=== PATIENT | male | born 1950 | race Caucasian/White ===

== ENCOUNTER → 2020-11-29 | Outpatient (CLI) | payer MEDICARE, OTHER ==
[~2020-11-29] MED LIST: ESOM20CA PO; MULT-658 PO; TAMS-11 PO
== END | disposition home or self-care (01) ==
LOC: STAR 09:54
PROVIDERS: ATTEND Urology
DX: Z01.812 Encounter for preprocedural laboratory examination (principal); Z20.822 Contact with and (suspected) exposure to COVID-19; N40.1 Benign prostatic hyperplasia with lower urinary tract symptoms; R94.31 Abnormal electrocardiogram [ECG] [EKG]
CPT/HCPCS: 93005; U0003

== ENCOUNTER 2020-12-05 12:57 | Observation (INO) | payer MEDICARE, OTHER ==
[~2020-12-05] VITALS: Ht 170.2 cm; Wt 65.6 kg
[2020-12-05 13:28] VITALS: BP 156/96
[2020-12-05] MEDS ORDERED: LACTATED RINGERS 1,000 ML IV SCH (13:30)
[2020-12-05] MEDS ORDERED: CHLORHEXIDINE 15 ML UDC PO ONE (13:30)
[2020-12-05] MEDS ORDERED: FENTANYL PF 250 MCG/5ML ONE (15:40)
[2020-12-05] MEDS ORDERED: MIDAZOLAM 1 MG/ML, 2ML ONE (16:25)
[2020-12-05] MEDS ORDERED: ONDANSETRON 2MG/ML, 2ML ONE (16:32)
[2020-12-05] MEDS ORDERED: CEFAZOLIN 1,000 MG ONE (16:32)
[2020-12-05] MEDS ORDERED: DEXAMETHASONE 4 MG/ML, 1ML ONE (16:32)
[2020-12-05] MEDS ORDERED: PROPOFOL 50 ML ONE (16:57)
[2020-12-05] MEDS ORDERED: ACETAMINOPHEN 325 MG TABLET PO PRN ×2 (17:30→21:30)
[2020-12-05] MEDS ORDERED: MEPERIDINE/PF 25MG/0.5ML IVPush PRN (17:30)
[2020-12-05] MEDS ORDERED: hydrALAzine 20 MG/ML, 1ML IV PRN (17:30)
[2020-12-05] MEDS ORDERED: FENTANYL PF 100 MCG/2ML IV PRN (17:30)
[2020-12-05] MEDS ORDERED: PROMETHAZINE 25 MG/ML, 1ML IVPush PRN (17:30)
[2020-12-05] MEDS ORDERED: ONDANSETRON 2MG/ML, 2ML IVPush PRN (17:30)
[2020-12-05] MEDS ORDERED: LABETALOL 5MG/ML, 20ML IV PRN (17:30)
[2020-12-05] MEDS ORDERED: LORazepam 2 MG/ML, 1ML IVPush PRN (17:30)
[2020-12-05] MEDS ORDERED: OXYcodone 5 MG/5 ML ORAL.SOL UDC PO PRN (17:30)
[2020-12-05] MEDS ORDERED: HYDROmorphone 1 MG/ML, 1ML INJ IVPush PRN (17:30)
[2020-12-05] MEDS ORDERED: METHOCARBAMOL 1,000 MG in DEXTROSE 5% 100 ML IV PRN (17:30)
[2020-12-05] MEDS ORDERED: OPIUM/BELLADONNA SUPP.RECT 16.2-30 MG PR PRN ×2 (19:00→21:30)
[2020-12-05] MEDS ORDERED: OPIUM/BELLADONNA SUPP.RECT 16.2-30 MG ONE (19:02)
[2020-12-05] MEDS ORDERED: ACETAMINOPHEN 650 MG/20.3 ML UDC ONE (19:14)
[2020-12-05] MEDS ORDERED: ONDANSETRON 2MG/ML, 2ML IV PRN (21:30)
[2020-12-05] MEDS ORDERED: MORPHINE SULFATE 4 MG/ML, 1ML IV PRN (21:30)
[2020-12-05] MEDS ORDERED: HYDROcodone/APAP 5/325 TABLET PO PRN (21:30)
[2020-12-05] MEDS: D5%-LACTATED RINGERS 1,000 ML IV SCH (22:04)
[2020-12-06 02:00] VITALS: BP 112/82
[2020-12-06] MEDS: D5%-LACTATED RINGERS 1,000 ML IV SCH (05:30)
[2020-12-06 07:37] VITALS: BP 138/77
== END 2020-12-06 11:40 | disposition home or self-care (01) ==
LOC: OR 12:57 → 4NE 20:10 → OUT 22:49 → DCLOUNGE 12-06 11:35
PROVIDERS: ADMIT Urology; ATTEND Urology
DX: N40.1 Benign prostatic hyperplasia with lower urinary tract symptoms (principal); R31.0 Gross hematuria; K21.9 Gastro-esophageal reflux disease without esophagitis; Z90.79 Acquired absence of other genital organ(s); Z79.899 Other long term (current) drug therapy
CPT/HCPCS: 52601; 88305; 96360; 96361; G0378; J0690; J1100; J2250; J2405; J2704; J2800; J3010; J7120; J7121